=== PATIENT | female | born 1990 ===

== ENCOUNTER 2023-09-30 14:55 | Inpatient (IN) | payer BC ==
[2023-09-30] MEDS ORDERED: Methylergonovine 0.2 MG/1 ML Amp IM PRN (18:09)
[2023-09-30] MEDS ORDERED: Ondansetron 4 MG/2 ML SDV IVPUSH PRN (18:09)
[2023-09-30] MEDS ORDERED: Sodium Chloride 0.9% 20 ML SDV IV PRN (18:09)
[2023-09-30] MEDS ORDERED: Water For Irrigation,Sterile 1,000 ML Container IRR PRN (18:09)
[2023-09-30] MEDS ORDERED: Tranexamic Acid IN NACL,ISO-OS 1,000 MG in Premix Bag 1 BAG IV PRN (18:09)
[2023-09-30] MEDS ORDERED: Sodium Chloride 0.9% 10 ML Syringe FLUSH PRN (18:09)
[2023-09-30] MEDS ORDERED: Misoprostol 200 MCG Tab PO PRN (18:09)
[2023-09-30] MEDS ORDERED: Terbutaline 1 MG/ML SDV SUBCUT PRN (18:09)
[2023-09-30] MEDS ORDERED: Lidocaine 1% 50 ML MDV INJECT PRN (18:09)
[2023-09-30] MEDS ORDERED: Carboprost Tromethamine 250 MCG/1 mL Vial IM PRN (18:09)
[2023-09-30] MEDS ORDERED: Butorphanol 2 MG/ML SDV IVPUSH PRN (18:09)
[2023-09-30] MEDS ORDERED: Sodium Chloride 0.9% 2.5 ML Syringe FLUSH PRN (18:09)
[2023-09-30] MEDS ORDERED: Oxytocin/0.9 % Sodium Chloride 30 UNIT/500 ML BAG IV SCH (18:15)
[2023-09-30 19:06] LABS: HEMOGLOBIN 11.6 g/dL (12.0-16.0); MEAN CORPUSCULAR HEMOGLOBIN 29.2 pg (28.0-32.0); MEAN CORPUSCULAR HGB CONC 33.1 g/dL (32.0-36.0); MEAN CORPUSCULAR VOLUME 88.2 fL (83.0-99.0); MEAN PLATELET VOLUME 10.9 fL (9.4-12.3); PLATELET COUNT,PLT 246 K/uL (150-400); RED BLOOD CELL COUNT 3.97 M/uL (4.10-5.30); WHITE BLOOD CELL COUNT,WBC 9.85 K/uL (3.9-11.3)
[2023-09-30] MEDS: Misoprostol 25 MCG (1/4 of 100 MCG) Tab VAG PRN (20:15)
[2023-09-30] MEDS ORDERED: Ampicillin 2 GM in Sodium Chloride 0.9% 100 ML IV ONE (20:30)
[2023-09-30] MEDS ORDERED: Ampicillin 1 GM Vial IM SCH (20:45)
[2023-09-30] MEDS: Lactated Ringers 1,000 ML IV SCH (21:32)
[2023-09-30] MEDS: Ampicillin 2 GM in Sodium Chloride 0.9% 100 ML IV ONE (21:34)
[2023-10-01] MEDS: Ampicillin 1 GM in Sodium Chloride 0.9% 50 ML IV SCH (00:36)
[2023-10-01] MEDS: Sodium Chloride 0.9% 100 ML ONE (07:12)
[2023-10-01] MEDS: Premix Bag 1 BAG ONE (07:12)
[2023-10-01] MEDS: Ampicillin 2 GM Vial ONE (07:12)
[2023-10-01] MEDS: NIFEdipine 30 MG Tab.ER PO ONE (08:32)
[2023-10-01] MEDS: Oxytocin/0.9 % Sodium Chloride 30 UNIT/500 ML BAG IV SCH (08:45)
[2023-10-01] MEDS: Bupivacaine 0.5% 10 ML SDV ONE (10:08)
[2023-10-01] MEDS: Ropivacaine HCl/PF 200 ML ONE (10:08)
[2023-10-01] MEDS: Phenylephrine HCl In 0.9% NaCl 1 MG/10 ML Syringe ONE (10:08)
[2023-10-01] MEDS ORDERED: ePHEDrine 50 MG/ML SDV IVPUSH PRN ×2 (10:20)
[2023-10-01] MEDS ORDERED: Phenylephrine HCl In 0.9% NaCl 1 MG/10 ML Syringe IVPUSH PRN (10:20)
[2023-10-01] MEDS: Ropivacaine HCl/PF 400 MG in Premix Bag 1 BAG EPIDUR SCH (11:22)
[2023-10-01] MEDS ORDERED: Lanolin 100% Cream 7 GM Tube TOP PRN (14:55)
[2023-10-01] MEDS ORDERED: Docusate Sodium 100 MG Cap PO PRN (14:55)
[2023-10-01] MEDS ORDERED: Witch Hazel Medicated Pads 40/Jar TOP PRN (14:55)
[2023-10-01] MEDS ORDERED: Benzocaine/Menthol 20%-0.5% Spray 78 GM Cannister TOP PRN (14:55)
[2023-10-01] MEDS: Ibuprofen 800 MG Tab PO PRN (16:35)
[2023-10-01] MEDS: Acetaminophen 500 MG Tab PO PRN (19:28)
[2023-10-02 05:59] LABS: HEMATOCRIT 32.7 % (37.0-47.0); HEMOGLOBIN 10.9 g/dL (12.0-16.0)
== END 2023-10-02 14:30 | disposition home or self-care (01) | DRG 560 ==
LOC: MW.OB 14:55 → OBSVTOIN 10-01 14:55 → MW.OB 10-01 15:30
PROVIDERS: ADMIT Obstetrics & Gynecology; ATTEND Obstetrics & Gynecology
PROC: 10E0XZZ Delivery of Products of Conception, External Approach (ICD-10-PCS; principal; 2023-10-01)
PROC: 3E033VJ Introduction of Other Hormone into Peripheral Vein, Percutaneous Approach (ICD-10-PCS; 2023-10-01)
DX: O13.4 Gestational [pregnancy-induced] hypertension without significant proteinuria, complicating childbirth (principal); Z3A.38 38 weeks gestation of pregnancy; Z37.0 Single live birth; O99.02 Anemia complicating childbirth; O69.81X0 Labor and delivery complicated by cord around neck, without compression, not applicable or unspecified; O99.214 Obesity complicating childbirth
CPT/HCPCS: 36415; 51702; 59025; 85014; 85018; 85027; 86592; 86850; 86900; 86901; A9270-GY; J0290; J0665; J2371; J2590; J2795; J3490; J7120